=== PATIENT | female | born 1995 | race Caucasian/White ===

== ENCOUNTER → 2021-02-02 | Outpatient (CLI) | payer BC, OTHER | LOC: HEART 5 13:04 | DX: R00.2 Palpitations (principal); I49.3 Ventricular premature depolarization; I49.1 Atrial premature depolarization ==

== ENCOUNTER → 2021-04-04 | Outpatient (CLI) | payer BC | LOC: RAD 17:29 | DX: O99.511 Diseases of the respiratory system complicating pregnancy, first trimester (principal) | CPT/HCPCS: 71046 ==

== ENCOUNTER 2021-07-07 15:03 | Inpatient (IN) | payer BC ==
[~2021-07-07] VITALS: Ht 170.2 cm; Wt 99.3 kg
[2021-07-07 15:32] LABS: HEMOGLOBIN 12.2 gm/dl (12.3-15.3); RED BLOOD COUNT 4.05 M/UL (4.00-5.10); WHITE BLOOD COUNT 11.3 K/UL (4.5-11.0)
[2021-07-07] MEDS ORDERED: PRILOSEC OTC20 MG PO (18:22)
[2021-07-07] MEDS ORDERED: PRENATABS FA T1 EACH PO (18:24)
[2021-07-07] MEDS ORDERED: TRANDATE 200 M200 MG PO (18:25)
[2021-07-08] MEDS ORDERED: IBUPROFEN600 MG PO (14:41)
[2021-07-08] MEDS ORDERED: COLACE 100MG C100 MG PO (14:41)
[2021-07-09 07:31] LABS: HEMOGLOBIN 12.6 gm/dl (12.3-15.3)
== END 2021-07-09 17:24 | disposition home or self-care (01) | DRG 807 ==
LOC: GENOP 15:03 → OB 15:15
PROVIDERS: Obstetrics & Gynecology; ADMIT Obstetrics & Gynecology
PROC: 10E0XZZ Delivery of Products of Conception, External Approach (ICD-10-PCS; principal; 2021-07-08)
PROC: 0KQM0ZZ Repair Perineum Muscle, Open Approach (ICD-10-PCS; 2021-07-08)
PROC: 10907ZC Drainage of Amniotic Fluid, Therapeutic from Products of Conception, Via Natural or Artificial Opening (ICD-10-PCS; 2021-07-08)
PROC: 10H07YZ Insertion of Other Device into Products of Conception, Via Natural or Artificial Opening (ICD-10-PCS; 2021-07-08)
PROC: 4A1HXCZ Monitoring of Products of Conception, Cardiac Rate, External Approach (ICD-10-PCS; 2021-07-08)
PROC: 10H07YZ Insertion of Other Device into Products of Conception, Via Natural or Artificial Opening (ICD-10-PCS; 2021-07-08)
DX: O36.5930 Maternal care for other known or suspected poor fetal growth, third trimester, not applicable or unspecified (principal); Z37.0 Single live birth; O13.4 Gestational [pregnancy-induced] hypertension without significant proteinuria, complicating childbirth; E66.9 Obesity, unspecified; O99.214 Obesity complicating childbirth; O99.892 Other specified diseases and conditions complicating childbirth; R00.0 Tachycardia, unspecified; O70.1 Second degree perineal laceration during delivery; O99.344 Other mental disorders complicating childbirth; F41.9 Anxiety disorder, unspecified; Z3A.37 37 weeks gestation of pregnancy
CPT/HCPCS: 36415; 51702; 81001; 85014; 85018; 85025; 90471; 90715; J2590; J3010; U0002